=== PATIENT | male | born 1960 | race Caucasian/White ===

== ENCOUNTER → 2019-03-06 | Outpatient (CLI) | payer MEDICAID ==
--- NOTE | 2019-03-06 16:32 | US ---
EXAMINATION TYPE: US venous doppler duplex LE LT DATE OF EXAM: 03/06/2019 4:18 PM COMPARISON: NONE CLINICAL HISTORY: R60.0 LOCALIZED EDEMA,PAIN IN LT LEG M79.605. Left lower leg area of pain and swell ing SIDE PERFORMED: Left TECHNIQUE: The lower extremity deep venous system is examined utilizing real time linear array sonog teddy with graded compression, doppler sonography and color-flow sonography. VESSELS IMAGED: External Iliac Vein (EIV) Common Femoral Vein Deep Femoral Vein Greater Saphenous Vein * Femoral Vein Popliteal Vein Small Saphenous Vein * Proximal Calf Veins (* superficial vessels) FINDINGS: Grayscale, color doppler, spectral doppler imaging performed of the deep veins of the lowe r extremities. There is normal flow, compressibility, vascular waveforms. No evidence for DVT. Scanned at patient's area of concern, with edema seen but no evidence of superfi cial thrombus or mass or fluid. IMPRESSION: Negative for DVT, left lower extremity.
== END | disposition home or self-care (01) ==
LOC: RADUSWWP 15:40
PROVIDERS: ATTEND Internal Medicine
DX: M79.605 Pain in left leg (principal); R60.0 Localized edema